=== PATIENT | male | born 1960 | race Caucasian/White ===

== ENCOUNTER 2016-06-24 03:34 | Emergency (ER) | payer SELFPAY ==
[~2016-06-24] VITALS: Ht 175.3 cm; Wt 70.5 kg
[~2016-06-24 03:34] MED LIST: FAMO20TA38 PO
[2016-06-24 03:36] VITALS: PULSE 74; RESP 16; O2SAT 98
[2016-06-24 04:30] LABS: BASOPHILS % (AUTO) 0.9 % (0-3); EOSINOPHILS % (AUTO) 8.1 % (0-5); MONOCYTES % (AUTO) 10.3 % (4-12); Mean Corpuscular Hemoglobin 30.6 pg (27.0-35.0); Mean Corpuscular Volume 88.3 fL (81-100); NEUTROPHILS % (AUTO) 52.7 % (40-74); Platelet Count 274 bil/L (150-400)
[2016-06-24 04:51] LABS: TROPONIN T 0.01 ug/L (0.0-0.011)
[2016-06-24 05:02] LABS: Magnesium 2.1 mg/dL (1.6-2.6)
--- NOTE | 2016-06-24 06:03 | ED.REPORT ---
HPI-General Illness Date of Service June 24, 2016 ED Provider: Hank Aguirre DO The patient is a 55 year old male who presents to the emergency department complaining of feeling "foggy" that began last night. He has also experienced lightheadedness, abdominal pressure, and a "racing heart." The patient states his hall coordinator diagnosed him with tank infection on his tongue. He believes his symptoms are related to this infection. He denies chest pain, shortness of breath, unilateral extremity swelling, hemoptysis, vomiting or diarrhea. He denies history of blood clots or cancer. No recent long periods of immobilization. Nursing Notes Stated Complaint: LIGHT HEADED/NAUSEA Chief Complaint: General Complaint Nursing Notes Reviewed: Yes Allergies: Coded Allergies: No Known Allergies (Unverified , 06/24/16) Scheduled Famotidine-Expunged Drug, Do Not Renew! (Pepcid Ac-Expunged Drug, Do Not Renew! ) 20 Mg Tab.chew 20 MG PO PRN General Time Seen by MD: 06:03 Chief Complaint Other (feeling "foggy") Hx Obtained From: Patient Arrived By: Walk-in Sudden in Onset?: Yes Onset Occurred: Yesterday Symptom Duration: Since onset Location: : Abdomen Quality: Pressure Severity: Current: Mild Severity: Maximum: Moderate Recent Healthcare: No recent hospitalization Similar Sx Previous: Yes Well's Criteria for PE Well's PE Score: 0-2 pts (low risk 3.6%) Well's Criteria for DVT Well's DVT Score: 0 pts (low risk 5%) Past Medical History Family History Noncontributory Social History Other Social History: Good social support, Local resident Ambulatory Status Independent Review of Systems +"feeling foggy," "racing heart" Full Review of Systems Respiratory: Denies: Hemoptysis, Shortness of breath Cardiovascular: Denies: Chest pain GI: Reports: Abdominal pain, Nausea, Denies: Diarrhea, Vomiting Musculoskeletal: Denies: Extremity swelling Neurologic: Reports: Lightheaded Complete sys rev & neg: except as marked. Physical Exam Vital Signs Vital Signs Date Time Temp Pulse Resp B/P Pulse Ox O2 Delivery O2 Flow Rate FiO2 06/24/16 06:43 36.0 80 14 128/76 98 Room Air 06/24/16 03:36 36.0 74 16 98 Room Air Initial VS: Reviewed Head / Eyes: Atraumatic, Normocephalic, PERRL ENT: Mucous membranes moist, Conjunctiva normal, No scleral icterus Neck: Supple, Non-tender, Full range of motion Lymphatic: No lymphadenopathy Extremities: Vascular intact, Neuro intact, No swelling, No tenderness Skin: Warm, Dry, No cyanosis Neurologic: Alert, Oriented, Nonfocal Psychiatric: Mood/affect normal, Behavior normal, Normal thought content General/Constitutional: Awake, Alert, Cooperative Respiratory / Chest: Atraumatic, Breath sounds NL, Breath sounds = bilat, No respiratory distress, No rales, No rhonchi, No wheezing, No retractions Cardiovascular: Heart rate NL, Regular rhythm, Heart sounds NL, No gallop, No murmurs, No rubs, Cap refill not delayed, Peripheral circulation NL Abdomen: Atraumatic, Soft, Non-tender, No guarding, No rebound, BS normoactive , No distention, No hernia, No palpable mass, No pulsatile mass Interpretation & Diagnostics Interpretation & Diagnostics: Negative drug screen Normal urine dip Lab Results Interpretation Result Diagram: 06/24/16 0418 06/24/16 0418 Test 06/24/16 04:18 White Blood Count 5.7th/mm3 (3.8-10.1) Red Blood Count 5.06mil/mm3 (4.40-5.80) Hemoglobin 15.5g/dL (13.8-17.2) Hematocrit 44.7% (41.0-50.0) Mean Corpuscular Volume 88.3fL (81-100) Mean Corpuscular Hemoglobin 30.6pg (27.0-35.0) Mean Corpuscular Hemoglobin Concent 34.7% (32.0-37.0) Red Cell Distribution Width 12.6% (12.3-15.4) Platelet Count 274bil/L (150-400) Neutrophils (%) (Auto) 52.7% (40-74) Lymphocytes (%) (Auto) 27.8% (14-46) Monocytes (%) (Auto) 10.3% (4-12) Eosinophils (%) (Auto) 8.1% (0-5) Basophils (%) (Auto) 0.9% (0-3) Sodium Level 138mEq/L (134-144) Potassium Level 4.0mEq/L (3.5-5.2) Chloride Level 101mEq/L (97-108) Carbon Dioxide Level 24mmol/L (18-29) Blood Urea Nitrogen 24mg/dL (6-24) Creatinine 0.85mg/dL (0.76-1.27) Estimat Glomerular Filtration Rate 99mL/min (>59) Glucose Level 101mg/dL (60-99) Calcium Level 9.1mg/dL (8.5-10.1) Magnesium Level 2.1mg/dL (1.6-2.6) Total Bilirubin 0.4mg/dL (0.0-1.2) Aspartate Amino Transf (AST/SGOT) 19U/L (0-50) Alanine Aminotransferase (ALT/SGPT) 15U/L (0-44) Alkaline Phosphatase 87U/L (25-150) Troponin T 0.010ug/L (0.0-0.011) Total Protein 6.8g/dL (6.4-8.4) Albumin 4.0g/dL (3.4-5.0) Lipase 42U/L (13-60) ECG Interpretation Time: 06:00 Interpreted by: ED physician Normal ECG Interpretation: Normal rate, Normal sinus rhythm, No acute ischemic changes, Normal QRS, Normal axis, Normal intervals, Adequate tracing Re-Eval/Medical Decision Source of Hx: Old records Re-Evaluation/Progress Note: Discussed lab results, diagnosis, and plan for discharge. All questions were addressed. Counseled Regarding: Diagnosis, Lab results, Need for follow-up, When/why to return to ED Discharge & Departure Primary Impression: Nausea Additional Impression: Lightheadedness Disposition: Home Discharge Condition All VS Reviewed: Yes Condition: Stable Additional Instructions: Thank you for entrusting us with your care today. Your blood work, urinalysis, and EKG today are reassuring. There is no evidence of anything acutely dangerous at this time. You may be slightly dehydrated. It is important to drink plenty of fluids each day. Followup with your regular doctor if your symptoms are not improving. Return to the emergency department if you develop numbness, weakness, headache, chest pain, shortness of breath, or any other new or worsening symptoms. Referrals: NOPCP (PCP) Scribe Attestation Portions of this note were transcribed by Veronika Acosta. IDr. Aguirre personally performed the history, physical exam and medical decision-making; I reviewed and confirmed the accuracy of the information in the transcribed note. Signed by: Graciela Lowe, 06/24/2016 at 0700. Hank Aguirre DO June 24, 2016 06:03 Veronika Acosta June 24, 2016 06:15
[2016-06-24 06:43] VITALS: BP 128/76; PULSE 80; RESP 14; O2SAT 98
== END 2016-06-24 06:42 | disposition home or self-care (01) ==
LOC: SED 03:34
DX: R11.0 Nausea (principal); R42 Dizziness and giddiness